=== PATIENT | female | born 1940 | race Caucasian/White ===

== ENCOUNTER 2024-11-28 13:33 | Inpatient (IN) | payer MEDICARE, BC ==
[2024-11-28] MEDS ORDERED: Ondansetron PF 4 MG/2 ML Vial ONE (14:01)
[2024-11-28 14:22] LABS: #Basophils 0.04 10x3/uL (0.0-0.2); #Eosinophils 0.15 10x3/uL (0.0-0.7); #Monocytes 0.89 10x3/uL (0.11-0.59); #Neutrophils 9.15 10x3/uL (1.40-6.50); %Basophils 0.3 % (0.0-1.0); %Eosinophils 1.3 % (0.0-10.0); %Lymphocytes 10.3 % (21.0-51.0); %Monocytes 7.8 % (0.0-10.0); %Neutrophils 80.0 % (42.0-75.0); Hematocrit 33.2 % (36.0-47.0); Hemoglobin 10.9 g/dL (12.0-16.0); Mean Corpuscular Hemoglobin 30.5 pg (27.0-31.0); Mean Corpuscular Volume 93.0 fL (78.0-98.0); Platelet Count 180 10x3/uL (130-400); Red Blood Cell (RBC) Count 3.57 mill/uL (4.20-5.40); White Blood Cell (WBC) Count 11.45 10x3/uL (4.8-10.8)
[2024-11-28 14:36] LABS: ALT (SGPT) 11 U/L (Less than 34); AST (SGOT) 29 U/L (11-34); Albumin 3.7 g/dL (3.1-4.5); Alkaline Phosphatase 57 U/L (40-110); Anion Gap 14 mmol/L (10-20); BUN (Urea Nitrogen) 24 mg/dL (9.8-20.1); Bilirubin, Total 0.5 mg/dL (0.3-1.2); Calc. Creatinine Clearance 0 mL/min (70-130); Calcium 8.6 mg/dL (7.8-10.44); Carbon Dioxide 23 mmol/L (23-31); Chloride 102 mmol/L (98-107); Globulin 2.7 g/dL (2.4-3.5); Glucose 134 mg/dL (83-110); Potassium 4.5 mmol/L (3.5-5.1); Sodium 134 mmol/L (136-145)
[2024-11-28 14:41] LABS: Troponin I 0.011 ng/mL (< 0.028)
[2024-11-28 14:42] LABS: INR-International Normal Ratio 1.0; PTT 31.6 sec (22.9-36.1); Prothrombin Time 13.2 sec (12.0-14.7)
[2024-11-28] MEDS ORDERED: Ondansetron PF 4 MG/2 ML Vial IVP PRN (15:26)
[2024-11-28] MEDS ORDERED: hydrALAZINE 20 MG/ML VIAL SLOW IVP PRN (15:26)
[2024-11-28] MEDS ORDERED: HYDROcodone/Acetaminophen 5/325 mg Tablet PO PRN (15:26)
[2024-11-28] MEDS ORDERED: Electrolyte Replacement Protocol 1 EACH FS SCH (15:35)
[2024-11-28] MEDS ORDERED: Ketorolac Tromethamine 30 MG (1 mL) VIAL ONE (16:34)
[2024-11-28 18:45] VITALS: BMI 19.5
[2024-11-28] MEDS: Acetaminophen 325 MG TAB PO PRN (20:09)
[2024-11-28] MEDS: Methocarbamol 500 MG TAB PO PRN (20:09)
[2024-11-28] MEDS: TETANUS, DIPHTHERIA TOX,ADULT (TDVAX) 0.5 ML VIAL IM ONE (20:10)
[2024-11-29 05:28] LABS: #Basophils 0.03 10x3/uL (0.0-0.2); #Eosinophils 0.15 10x3/uL (0.0-0.7); #Monocytes 0.67 10x3/uL (0.11-0.59); #Neutrophils 4.34 10x3/uL (1.40-6.50); %Basophils 0.5 % (0.0-1.0); %Eosinophils 2.3 % (0.0-10.0); %Lymphocytes 19.8 % (21.0-51.0); %Monocytes 10.3 % (0.0-10.0); %Neutrophils 66.9 % (42.0-75.0); Hematocrit 26.9 % (36.0-47.0); Hemoglobin 8.9 g/dL (12.0-16.0); Mean Corpuscular Hemoglobin 30.6 pg (27.0-31.0); Mean Corpuscular Volume 92.4 fL (78.0-98.0); Platelet Count 152 10x3/uL (130-400); Red Blood Cell (RBC) Count 2.91 mill/uL (4.20-5.40); White Blood Cell (WBC) Count 6.48 10x3/uL (4.8-10.8)
[2024-11-29 05:48] LABS: Anion Gap 10 mmol/L (10-20); BUN (Urea Nitrogen) 19 mg/dL (9.8-20.1); Calc. Creatinine Clearance 47 mL/min (70-130); Calcium 8.1 mg/dL (7.8-10.44); Carbon Dioxide 22 mmol/L (23-31); Chloride 105 mmol/L (98-107); Glucose 105 mg/dL (83-110); Potassium 4.0 mmol/L (3.5-5.1); Sodium 133 mmol/L (136-145)
[2024-11-29] MEDS: Senokot S 8.6-50 MG TAB PO SCH (09:56)
[2024-11-29] MEDS ORDERED: fentaNYL PF 100 MCG/2 ML SYRINGE ONE (13:25)
[2024-11-29] MEDS ORDERED: Lidocaine 1% PF 5 ML VIAL ONE (13:25)
[2024-11-29] MEDS ORDERED: Ondansetron PF 4 MG/2 ML Vial ONE (13:25)
[2024-11-29] MEDS ORDERED: Rocuronium Bromide 10 MG/ML (10ML VIAL) ONE (13:25)
[2024-11-29] MEDS ORDERED: PROPOFOL 20 ML ONE (13:25)
[2024-11-29] MEDS ORDERED: Lidocaine 2% 6 ML (Jelly) SYR ONE (13:30)
[2024-11-29] MEDS ORDERED: PHENYLEPHRINE-NS 100 MCG/ML 10 ML SYRINGE ONE (13:30)
[2024-11-29] MEDS ORDERED: CEFAZOLIN 2 GM VIAL ONE (14:00)
[2024-11-29] MEDS: PNEUMOC 20-VAL CONJ-DIP CRM/PF 0.5 ML SYRINGE IM ONE (20:24)
[2024-11-30 06:33] LABS: #Basophils Less than 0.03 10x3/uL (0.0-0.2); #Eosinophils Less than 0.03 10x3/uL (0.0-0.7); #Monocytes 1.07 10x3/uL (0.11-0.59); #Neutrophils 5.07 10x3/uL (1.40-6.50); %Basophils 0.1 % (0.0-1.0); %Eosinophils 0.0 % (0.0-10.0); %Lymphocytes 15.9 % (21.0-51.0); %Monocytes 14.6 % (0.0-10.0); %Neutrophils 69.0 % (42.0-75.0); Hematocrit 26.5 % (36.0-47.0); Hemoglobin 8.7 g/dL (12.0-16.0); Mean Corpuscular Hemoglobin 30.6 pg (27.0-31.0); Mean Corpuscular Volume 93.3 fL (78.0-98.0); Platelet Count 148 10x3/uL (130-400); Red Blood Cell (RBC) Count 2.84 mill/uL (4.20-5.40); White Blood Cell (WBC) Count 7.35 10x3/uL (4.8-10.8)
[2024-11-30 06:46] LABS: Anion Gap 14 mmol/L (10-20); BUN (Urea Nitrogen) 17 mg/dL (9.8-20.1); Calc. Creatinine Clearance 50 mL/min (70-130); Calcium 8.2 mg/dL (7.8-10.44); Carbon Dioxide 23 mmol/L (23-31); Chloride 102 mmol/L (98-107); Glucose 111 mg/dL (83-110); Potassium 4.2 mmol/L (3.5-5.1); Sodium 135 mmol/L (136-145)
[2024-11-30] MEDS ORDERED: Enoxaparin 30 MG (0.3 mL) SYRINGE SC SCH (09:00)
[2024-11-30] MEDS: Aspirin 81 mg Enteric Coated Tablet PO SCH (09:01)
[2024-12-01 08:36] LABS: #Basophils 0.03 10x3/uL (0.0-0.2); #Eosinophils 0.13 10x3/uL (0.0-0.7); #Monocytes 1.00 10x3/uL (0.11-0.59); #Neutrophils 5.98 10x3/uL (1.40-6.50); %Basophils 0.3 % (0.0-1.0); %Eosinophils 1.5 % (0.0-10.0); %Lymphocytes 19.6 % (21.0-51.0); %Monocytes 11.2 % (0.0-10.0); %Neutrophils 66.8 % (42.0-75.0); Hematocrit 21.7 % (36.0-47.0); Hemoglobin 7.1 g/dL (12.0-16.0); Mean Corpuscular Hemoglobin 30.6 pg (27.0-31.0); Mean Corpuscular Volume 93.5 fL (78.0-98.0); Platelet Count 129 10x3/uL (130-400); Red Blood Cell (RBC) Count 2.32 mill/uL (4.20-5.40); White Blood Cell (WBC) Count 8.94 10x3/uL (4.8-10.8)
[2024-12-01 08:47] LABS: Anion Gap 10 mmol/L (10-20); BUN (Urea Nitrogen) 31 mg/dL (9.8-20.1); Calc. Creatinine Clearance 49 mL/min (70-130); Calcium 7.8 mg/dL (7.8-10.44); Carbon Dioxide 24 mmol/L (23-31); Chloride 96 mmol/L (98-107); Glucose 101 mg/dL (83-110); Potassium 3.9 mmol/L (3.5-5.1); Sodium 126 mmol/L (136-145)
[2024-12-01] MEDS: Metoprolol Succinate XL 25 MG ER.TAB PO SCH (08:52)
[2024-12-01 16:22] VITALS: BP 96/57; TEMP 97.3
== END 2024-12-01 17:24 | DRG 481 ==
LOC: ERS 13:33 → SURG A 15:36
PROVIDERS: ADMIT Surgery; ATTEND Surgery
PROC: 0QH606Z Insertion of Intramedullary Internal Fixation Device into Right Upper Femur, Open Approach (ICD-10-PCS; principal; 2024-11-29)
DX: S72.141A Displaced intertrochanteric fracture of right femur, initial encounter for closed fracture (principal); D62 Acute posthemorrhagic anemia; W19.XXXA Unspecified fall, initial encounter; I10 Essential (primary) hypertension; Z79.899 Other long term (current) drug therapy
CPT/HCPCS: 36415; 71045; 80048; 80053; 84484; 85025; 85610; 85730; 86850; 86900; 86901; 93005; 94760; 96374; 96375; C1713; G0390; J1100; J1885; J2270; J2405; J2704; J3010

== ENCOUNTER 2024-12-11 10:47 | Outpatient (CLI) | payer MEDICARE, BC | END 2024-12-11 15:00 | disposition home or self-care (01) | LOC: ERS 10:47 → RAD 10:47 → EDSTATUS 14:39 → ERS 15:00 | DX: M79.89 Other specified soft tissue disorders (principal) ==